=== PATIENT | female | born 1990 | race Caucasian/White ===

== ENCOUNTER 2022-11-21 20:25 | Emergency (ER) | payer SELFPAY ==
[~2022-11-21] VITALS: Ht 170 cm; Wt 104.0 kg
[2022-11-21 20:52] VITALS: BP 147/88
== END 2022-11-21 22:00 | disposition left against medical advice (07) ==
LOC: EDUNIT# 20:25 → ER 20:28
DX: M54.50 Low back pain, unspecified (principal); W01.0XXA Fall on same level from slipping, tripping and stumbling without subsequent striking against object, initial encounter